=== PATIENT | male | born 1995 | race Two or more races ===

== ENCOUNTER 2021-05-21 20:23 | Emergency (ER) | payer OTHER ==
[~2021-05-21] VITALS: Ht 180.3 cm; Wt 97.2 kg
--- NOTE | 2021-05-21 20:48 | NUR ---
pt presents to ed with fever for 2 days. pt states he took dayquill with 650mg of tylenol in it at 1700, and it hadn't seem to drop his temperature. pt resting on gureny, in gown, and placed on continuous monitoring.
[2021-05-21] MEDS ORDERED: ACETAMINOPHEN 500 MG TABLET ONE (21:35)
[2021-05-21] MEDS ORDERED: ONDANSETRON ODT 4 MG ONE (21:35)
[2021-05-21] MEDS ORDERED: KETOROLAC 60 MG/2 ML ONE (21:35)
--- NOTE | 2021-05-21 21:50 | NUR ---
pt medicated, resting on gurney, denies needs at this time.
[2021-05-21 22:00] VITALS: BP 150/81
[2021-05-21] MEDS ORDERED: ACETAMINOPHEN 500 MG TABLET PO ONE (22:00)
[2021-05-21] MEDS ORDERED: ONDANSETRON ODT 4 MG PO ONE (22:00)
[2021-05-21] MEDS ORDERED: KETOROLAC 30 MG/1 ML IM ONE (22:00)
--- NOTE | 2021-05-21 22:53 | NUR ---
Patient given discharge instructions and they have confirmed that they understand the instructions. Patient ambulatory with steady gait.
== END 2021-05-21 22:54 | disposition home or self-care (01) ==
LOC: ED 22:32
DX: U07.1 COVID-19 (principal); J06.9 Acute upper respiratory infection, unspecified; B34.9 Viral infection, unspecified; G04.90 Encephalitis and encephalomyelitis, unspecified; R00.0 Tachycardia, unspecified
CPT/HCPCS: 71045; 93005; 96372; 99285; J1885; Q0162; U0003; U0005

== ENCOUNTER 2021-05-28 09:47 | Emergency (ER) | payer OTHER ==
[~2021-05-28] VITALS: Ht 180.3 cm; Wt 91.7 kg
[2021-05-28 09:52] VITALS: BP 153/104
--- NOTE | 2021-05-28 10:41 | NUR ---
US AT BEDSIDE
[2021-05-28] MEDS ORDERED: DEXAMETHASONE 4 MG TABLET ONE (11:26)
--- NOTE | 2021-05-28 11:37 | NUR ---
Patient given discharge instructions and they have confirmed that they understand the instructions. Patient ambulatory with steady gait.
[2021-05-28] MEDS ORDERED: DEXAMETHASONE 4 MG TABLET PO ONE (12:00)
== END 2021-05-28 11:54 | disposition home or self-care (01) ==
LOC: ED 11:25
DX: N43.3 Hydrocele, unspecified (principal)
CPT/HCPCS: 76870; 99284

== ENCOUNTER 2021-07-06 12:30 | Outpatient (CLI) | payer OTHER ==
[2021-07-06 12:45] LABS: BASOPHILS % (AUTO) 1 % (0-1); EOSINOPHILS % (AUTO) 1 % (1-7); LYMPHOCYTES % (AUTO) 28 % (22-44); MEAN CORPUSCULAR HEMOGLOBIN 31.8 pg (27.5-34.5); MEAN CORPUSCULAR HGB CONC 34.8 g/dL (33.2-36.2); MONOCYTES % (AUTO) 8 % (2-9); NEUTROPHILS % (AUTO) 62 % (42-75); PLATELET COUNT 228 x10^3/uL (130-400); RED BLOOD COUNT 4.97 x10^6/uL (4.38-5.82); RED CELL DISTRIBUTION WIDTH 13.2 % (9.4-14.8)
[2021-07-06 13:04] LABS: ALANINE AMINOTRANSFERASE 39 U/L (12-78); ALBUMIN 4.3 g/dL (3.4-5.0); ANION GAP 8 mmol/L (5-15); CALCIUM 8.9 mg/dL (8.5-10.1); CHLORIDE 107 mmol/L (98-107); CREATININE 0.89 mg/dL (0.7-1.3)
[2021-07-06 13:15] LABS: ALKALINE PHOSPHATASE 83 U/L (45-117); BILIRUBIN,TOTAL 2.1 mg/dL (0.2-1.0); TOTAL PROTEIN 7.6 g/dL (6.4-8.2)
== END 2021-07-06 23:59 | disposition home or self-care (01) ==
LOC: LAB 12:30
PROVIDERS: ATTEND Family Medicine
DX: I10 Essential (primary) hypertension (principal); R17 Unspecified jaundice
CPT/HCPCS: 36415; 80053; 84443; 85025